=== PATIENT | male | born 1970 | race Caucasian/White ===

== ENCOUNTER 2017-09-18 11:09 | Emergency (ER) | payer MEDICAID ==
[~2017-09-18] VITALS: Ht 167.6 cm; Wt 62.0 kg
[~2017-09-18 11:09] MED LIST: ACID1TAB7 PO; AMLO5TAB2 PO; ATOR20TA9 PO; FERR325T18 PO; GLIM4TAB PO; HYDR-3343 PO; ISON300T4 PO; METO25TA35 PO; PYRI50TA5 PO
[2017-09-18 13:16] LABS: BASOPHILS # (AUTO) 0.03 x10^3/uL (0-0.1); BASOPHILS % (AUTO) 0 % (0-1); EOSINOPHILS # (AUTO) 0.14 x10^3/uL (0-0.4); EOSINOPHILS % (AUTO) 2 % (1-7); LYMPHOCYTES # (AUTO) 1.29 x10^3/uL (1-3.4); LYMPHOCYTES % (AUTO) 15 % (22-44); MD NO; MEAN CORPUSCULAR HEMOGLOBIN 28.8 pg (27.5-34.5); MEAN CORPUSCULAR HGB CONC 32.5 g/dL (33.2-36.2); MEAN CORPUSCULAR VOLUME 88.9 fL (81-97); MEAN PLATELET VOLUME 8.2 fL (7.4-10.4); MONOCYTES # (AUTO) 0.79 x10^3/uL (0.2-0.8); MONOCYTES % (AUTO) 10 % (2-9); NEUTROPHILS # (AUTO) 6.12 x10^3/uL (1.8-6.8); NEUTROPHILS % (AUTO) 73 % (42-75); PLATELET COUNT 403 x10^3/uL (130-400); RED BLOOD COUNT 3.43 x10^6/uL (4.38-5.82); RED CELL DISTRIBUTION WIDTH 15.6 % (9.4-14.8)
[2017-09-18 13:18] LABS: ALBUMIN 2.5 g/dL (3.4-5.0); ANION GAP 12 mmol/L (5-15); CALCIUM 8.3 mg/dL (8.5-10.1); CHLORIDE 103 mmol/L (98-107); CREATININE 4.98 mg/dL (0.7-1.3)
[2017-09-18 14:27] VITALS: BP 177/96
== END 2017-09-18 14:30 | disposition home or self-care (01) ==
LOC: ED 14:24
DX: E87.5 Hyperkalemia (principal); N18.9 Chronic kidney disease, unspecified; E11.22 Type 2 diabetes mellitus with diabetic chronic kidney disease; I12.9 Hypertensive chronic kidney disease with stage 1 through stage 4 chronic kidney disease, or unspecified chronic kidney disease
CPT/HCPCS: 36415; 80048; 82040; 82962; 85025; 93005; 99285

== ENCOUNTER 2018-02-17 07:47 | Day surgery (SDC) | payer MEDICAID ==
[~2018-02-17] VITALS: Ht 170.2 cm; Wt 56.4 kg
[~2018-02-17 07:47] MED LIST changes: +BUPIVACAINE/PF 0.5% ONE; +HEPARIN 1,000 UNITS/ML, 10ML ONE; +PROTAMINE SULFATE 10 MG/ML, 5ML ONE; +THROMBIN 5,000 UNIT VIAL TP ONE
[2018-02-17] MEDS ORDERED: ASPI-496 PO (08:25)
[2018-02-17] MEDS ORDERED: HUMALOG SQ (08:31)
[2018-02-17] MEDS ORDERED: INSU100V13 SQ (08:31)
[2018-02-17 08:48] VITALS: BP 192/106
[2018-02-17] MEDS ORDERED: SODIUM CHLORIDE 0.9% 1,000 ML IV SCH ×2 (08:58)
[2018-02-17] MEDS ORDERED: AMLO5TAB2 PO (09:32)
[2018-02-17] MEDS ORDERED: HYDR-3343 PO (09:32)
[2018-02-17] MEDS ORDERED: METO25TA35 PO (09:32)
[2018-02-17] MEDS ORDERED: ACID1TAB7 PO (09:32)
[2018-02-17] MEDS ORDERED: ISON300T4 PO (09:32)
[2018-02-17] MEDS ORDERED: PYRI50TA9 PO (09:32)
[2018-02-17] MEDS ORDERED: ATOR20TA PO (09:32)
[2018-02-17] MEDS ORDERED: FERR325T18 PO (09:32)
[2018-02-17] MEDS ORDERED: INSULIN SINGLE DOSE, ER SQ-INSULIN ONE ×3 (09:38→11:22)
[2018-02-17] MEDS ORDERED: INSULIN REGULAR 100 UNITS/ML, 3ML VIAL SQ-INSULIN ONE (10:00)
[2018-02-17] MEDS ORDERED: FENTANYL PF 100 MCG/2ML ONE (10:15)
[2018-02-17] MEDS ORDERED: ROCURONIUM 10 MG/ML,10ML ONE (10:15)
[2018-02-17] MEDS ORDERED: CEFAZOLIN 1,000 MG ONE (10:15)
[2018-02-17] MEDS ORDERED: EPHEDRINE 50 MG/ML, 1ML ONE (10:15)
[2018-02-17] MEDS ORDERED: PHENYLEPHRINE 10 MG/ML ONE (10:15)
[2018-02-17] MEDS ORDERED: NEOSTIGMINE 1 MG/ML, 10ML ONE (10:15)
[2018-02-17] MEDS ORDERED: GLYCOPYRROLATE 0.2MG/1ML, 5ML ONE (10:15)
[2018-02-17] MEDS ORDERED: PROPOFOL 10 MG/ML, 20ML ONE (10:15)
[2018-02-17] MEDS ORDERED: MIDAZOLAM 1 MG/ML, 2ML ONE (10:15)
[2018-02-17] MEDS ORDERED: ONDANSETRON 2MG/ML, 2ML ONE (10:15)
[2018-02-17] MEDS ORDERED: ALBUTEROL SULFATE 2.5 MG/3 ML NPPB PRN (11:00)
[2018-02-17] MEDS ORDERED: EPHEDRINE 50 MG/ML, 1ML IVPush PRN (11:00)
[2018-02-17] MEDS ORDERED: METOPROLOL 1 MG/ML, 5ML IV PRN (11:00)
[2018-02-17] MEDS ORDERED: ACETAMINOPHEN 325 MG TABLET PO PRN (11:00)
[2018-02-17] MEDS ORDERED: FENTANYL PF 100 MCG/2ML IV PRN (11:00)
[2018-02-17] MEDS ORDERED: HYDROmorphone 1 MG/ML, 1ML IV PRN (11:00)
[2018-02-17] MEDS ORDERED: ONDANSETRON 2MG/ML, 2ML IV PRN (11:00)
[2018-02-17] MEDS ORDERED: LABETALOL 5MG/ML, 20ML IV PRN (11:00)
[2018-02-17] MEDS ORDERED: MIDAZOLAM 1 MG/ML, 2ML IV PRN (11:00)
[2018-02-17] MEDS ORDERED: hydrALAzine 20 MG/ML, 1ML IV PRN (11:00)
[2018-02-17] MEDS ORDERED: PROMETHAZINE 25 MG/ML, 1ML IV PRN (11:00)
[2018-02-17] MEDS ORDERED: EPINEPHRINE 1 MG/ML, 1ML INFIL ONE (11:09)
[2018-02-17] MEDS ORDERED: LABETALOL 5MG/ML, 20ML ONE (11:22)
[2018-02-17] MEDS ORDERED: ICN INSULIN (R) 0.5 UNITS/ML IV IV SCH (11:30)
[2018-02-17] MEDS ORDERED: INSULIN REGULAR 100 UNITS/ML, 3ML VIAL IV SCH (12:05)
[2018-02-17] MEDS ORDERED: EPINEPHRINE 1 MG/ML, 1ML ONE (13:38)
== END 2018-02-17 14:05 ==
LOC: OUT 07:47
PROVIDERS: ATTEND Surgery Vascular Surgery
DX: E11.22 Type 2 diabetes mellitus with diabetic chronic kidney disease (principal); I12.0 Hypertensive chronic kidney disease with stage 5 chronic kidney disease or end stage renal disease; N18.6 End stage renal disease; Z79.4 Long term (current) use of insulin
CPT/HCPCS: 36415; 36821; 49324; 80047; 82962; C1750; J0171; J0690; J1644; J2250; J2370; J2405; J2704; J2710; J3010; J3490; J7030; J2720